=== PATIENT | female | born 1965 | race Caucasian/White ===

== ENCOUNTER 2018-12-26 09:19 | Day surgery (SDC) | payer BC ==
--- OUTSIDE RECORDS SUMMARY | 2018-12-26 09:23 | XMS REPORT | Clinical Summary ---
:1965 Author Organization [facility] Address [address] [place] [address] Care Team Providers Name Role Phone Sharpmiranda Primary Care Provider Allergies Active Allergy Reactions Severity Noted Date Comments Erythromycin Nausea And Vomiting High 10/24/2014 Ynnjkpg-Sdk-Dkv Reductase Other (See Comments) 09/10/2018 Muscular pain Inhibitors Sulfa (Sulfonamide Rash High 10/24/2014 Antibiotics) Oerloounk-Pcxfmxndulw-Anhkgmo 09/10/2018 Medications Medication Sig Dispensed Refills Start End Status Date Date estrogens, 0 Active conjugated,-methyltest 4 osterone (ESTRATEST HS) 0.625-1.25 mg per tablet progesterone 0 Active (PROMETRIUM) 100 MG 4 capsule yqayywny-koqcqxmdm-bew 0 Active rocortisone 4 (CORTISPORIN) 3.5-10,000-10 mg-unit-mg/mL ophthalmic suspension halobetasol 0 Active (ULTRAVATE) 0.05 % 4 cream albuterol (ACCUNEB) Take 1 ampule by 0 Active 1.25 mg/3 mL nebulizer nebulization solution every 6 (six) hours as needed for Wheezing. albuterol HFA Inhale 1 puff by 0 Active (VENTOLIN HFA) 90 mouth via mcg/actuation inhaler inhaler every 6 (six) hours as needed for Wheezing. DYMISTA 137-50 . 0 Active mcg/spray [place] 8 fLUoxetine (PROZAC) 20 . 0 Active MG capsule 8 MICROGESTIN 1.5/30, . 0 Active 21, 1.5-30 mg-mcg Tab 8 triamcinolone . 0 Active (KENALOG) 0.1 % 8 topical cream KOMBIGLYZE XR 5-1,000 . 0 Active mg TM24 8 ondansetron Take 1 tablet (4 20 tablet 0 Discontinued (ZOFRAN-ODT) 4 MG mg total) by 4 018 disintegrating tablet mouth every 4 (four) hours as needed for Nausea. acetaminophen Take by mouth 0 Discontinued (TYLENOL) 500 MG every 6 (six) 018 tablet hours as needed for Pain. methylPREDNISolone Take 4 mg by 0 Discontinued (MEDROL DOSEPACK) 4 mg mouth 2 (two) 018 tablet times daily. follow package directions ciprofloxacin HCl Take 1 tablet 14 tablet 0 (CIPRO) 500 MG tablet (500 mg total) 8 018 by mouth 2 (two) times daily for 7 days. metroNIDAZOLE (FLAGYL) Take 1 tablet 14 tablet 0 500 MG tablet (500 mg total) 8 018 by mouth 2 (two) times daily for 7 days. promethazine Take 1 tablet 30 tablet 0 (PHENERGAN) 25 MG (25 mg total) by 8 018 tablet mouth every 6 (six) hours as needed for Nausea for up to 7 days. traMADol (ULTRAM) 50 Take 1 tablet 15 tablet 0 mg tablet (50 mg total) by 8 018 mouth every 8 (eight) hours as needed for up to 5 days. Max Daily Amount: 150 mg Active Problems Not on file Encounters Date Type Specialty Care Team Description 09/10/2018 Emergency Emergency Medicine Juan Montoya, Abdominal pain, unspecified abdominal location (Primary Dx); Acute diverticulitis; Nausea and vomiting, intractability of vomiting not specified, unspecified vomiting type; Hyperglycemia; Leukocytosis, unspecified type after 12/25/2017 Family History Medical History Relation Name Comments Pneumonia Father COPD Mother Pneumonia Sister Relation Name Status Comments Father Mother Sister Social History Tobacco Use Types Packs/Day Years Used Date Never Smoker Smokeless Tobacco: Never Used Alcohol Use Drinks/Week oz/Week Comments No Sex Assigned at Date Recorded Not on file Job Start Date Occupation Industry Not on file Not on file Not on file Travel History Travel Start Travel End No recent travel history available. Last Filed Vital Signs Vital Sign Reading Time Taken Blood Pressure 118/63 09/10/2018 3:58 AM CDT Pulse 86 09/10/2018 3:58 AM CDT Temperature 36.9 C (98.5 F) 09/10/2018 2:00 AM CDT Respiratory Rate 18 09/10/2018 3:58 AM CDT Oxygen Saturation 99% 09/10/2018 3:58 AM CDT Inhaled Oxygen Concentration - - Weight 108 kg (238 lb) 09/10/2018 12:23 AM CDT Height - - Body Mass Index 44.97 09/10/2018 12:23 AM CDT Plan of Treatment Not on file Procedures Procedure Name Priority Date/Time Associated Comments Diagnosis CT ABDOMEN/PELVIS STAT 09/10/2018 1:42 Results for this WITH IV CONTRAST AM CDT procedure are in the results section. SCREEN, STAT 09/10/2018 12:49 Results for this URINE AM CDT procedure are in the results section. CBC W/PLT COUNT & STAT 09/10/2018 12:48 Results for this AUTO DIFFERENTIAL AM CDT procedure are in the results section. LIPASE STAT 09/10/2018 12:48 Results for this AM CDT procedure are in the results section. HEPATIC FUNCTION STAT 09/10/2018 12:48 Results for this PANEL AM CDT procedure are in the results section. CBC W/PLT COUNT & STAT 09/10/2018 12:48 Results for this AUTO DIFFERENTIAL AM CDT procedure are in the results section. BASIC METABOLIC PANEL STAT 09/10/2018 12:48 Results for this (7) AM CDT procedure are in the results section. URINALYSIS W/ STAT 09/10/2018 12:39 Results for this MICROSCOPIC AM CDT procedure are in the results section. after 12/25/[address] abdomen/pelvis with IV contrast (09/10/2018 1:42 AM CDT) Narrative Performed At FINAL REPORT [facility] CLINICAL HISTORY: Acute abdominal pain. FINDINGS: Multiple axial images of the abdomen and pelvis were performed after the uncomplicated administration of IV contrast. Oral contrast was not given. This exam was performed according to our departmental dose-optimization program, which includes automated exposure control, adjustment of the mA and/or kV according to patient size and/or use of the iterative reconstruction technique. Comparison:None. Lower chest: Clear lungs. No pleural effusion or pneumothorax. Visualized cardiac contours normal. Liver: No significant findings. Gallbladder and biliary tree: No significant findings. Spleen: No significant findings. Adrenal Glands: No significant findings. Kidneys and ureters: No significant findings. Stomach and Duodenum: No significant findings. Pancreas: No significant findings. Bowel: Several left colonic diverticula. Segmental circumferential wall thickening of the proximal sigmoid colon with adjacent inflammatory fat stranding. No evidence of perforation or abscess formation. Appendix:Nonvisualized. No right lower quadrant inflammatory changes. Bladder: No significant findings. Major vascular structures: No significant findings. Reproductive organs: No significant findings. Other: Small, fat filled umbilical hernia. No free intraperitoneal air, fluid or adenopathy Skeleton: No acute bony abnormality. IMPRESSION: Acute, uncomplicated sigmoid diverticulitis. Follow-up colonoscopy is recommended to exclude an underlying colonic lesion when clinically feasible. Signed: Niki Merrill MD Report Verified Date/Time:09/10/2018 01:44:58 Reading Location: [address] Reading Room Procedure Note Interface, External Ris In - 09/10/2018 1:47 AM CDT FINAL REPORT CLINICAL HISTORY: Acute abdominal pain. FINDINGS: Multiple axial images of the abdomen and pelvis were performed after the uncomplicated administration of IV contrast. Oral contrast was not given. This exam was performed according to our departmental dose-optimization program, which includes automated exposure control, adjustment of the mA and/or kV according to patient size and/or use of the iterative reconstruction technique. Comparison:None. Lower chest: Clear lungs. No pleural effusion or pneumothorax. Visualized cardiac contours normal. Liver: No significant findings. Gallbladder and biliary tree: No significant findings. Spleen: No significant findings. Adrenal Glands: No significant findings. Kidneys and ureters: No significant findings. Stomach and Duodenum: No significant findings. Pancreas: No significant findings. Bowel: Several left colonic diverticula. Segmental circumferential wall thickening of the proximal sigmoid colon with adjacent inflammatory fat stranding. No evidence of perforation or abscess formation. Appendix: Nonvisualized. No right lower quadrant inflammatory changes. Bladder: No significant findings. Major vascular structures: No significant findings. Reproductive organs: No significant findings. Other: Small, fat filled umbilical hernia. No free intraperitoneal air, fluid or adenopathy Skeleton: No acute bony abnormality. IMPRESSION: Acute, uncomplicated sigmoid diverticulitis. Follow-up colonoscopy is recommended to exclude an underlying colonic lesion when clinically feasible. Signed: Niki Merrill MD Report Verified Date/Time: 09/10/2018 01:44:58 Reading Location: [address] Reading Room Performing Organization Address City/State/Zipcode Phone Number GE RIS Screen, urine (09/10/2018 12:49 AM CDT) Preg Test, Ur Negative [facility] Specimen Urine - Urine, Clean Catch Performing Organization Address City/[facility] Phone Number [facility] [address] [place] [address] [facility] CBC with platelet count + automated diff (09/10/2018 12:48 AM CDT) WBC 15.3 (H) 4.0 - 10.0 K/L [facility] RBC 4.30 4.00 - 5.00 M/L [facility] Hemoglobin 12.9 12.0 - 15.0 GM/DL [facility] Hematocrit 38.9 36.0 - 45.0 % [facility] MCV 90.5 82.0 - 99.0 fL [facility] MCH 29.9 27.0 - 33.0 pg [facility] MCHC 33.0 32.0 - 36.0 GM/DL [facility] RDW 12.1 10.3 - 14.2 % [facility] Platelets 368 150 - 430 K/CU MM [facility] MPV 7.8 6.5 - 10.5 fL [facility] % Neutros 70 % [facility] % Lymphs 18 % [facility] % Monos 9 % [facility] % Eos 3 % [facility] % Baso 1 % [facility] # Neutros 10.72 (H) 1.80 - 8.00 K/L [facility] # Lymphs 2.71 1.48 - 4.50 K/L [facility] # Monos 1.35 (H) 0.00 - 1.30 K/L [facility] # Eos 0.38 0.00 - 0.50 K/L [facility] # Baso 0.17 0.00 - 0.20 K/L [facility] Specimen Blood - Arm, Right Performing Organization Address City/[facility]/Zipcode Phone Number [facility] [address] [place] [address] [facility] Lipase (09/10/2018 12:48 AM CDT) Lipase 81 40 - 240 U/L [facility] Specimen Blood - Arm, Right Performing Organization Address City/[facility]/Zipcode Phone Number [facility] [address] [place], [place] [phone] [facility], [facility] Hepatic function panel (09/10/2018 12:48 AM CDT) Protein, Total 7.2 6.0 - 8.5 gm/dL [facility] Albumin 3.6 3.5 - 5.0 g/dL [facility] Total Bilirubin 0.3 0.1 - 1.2 mg/dL [facility] Bilirubin, Direct 0.0 0.0 - 0.4 mg/dL [facility] Alkaline Phosphatase 61 30 - 115 U/L [facility] AST 18 5 - 40 U/L [facility] ALT 33 5 - 50 U/L [facility] Specimen Blood - Arm, Right Performing Organization Address City/State/Zipcode Phone Number [place] [address] [place], [place] [phone] [facility] Basic Metabolic Panel (09/10/2018 12:48 AM CDT) Sodium 135 135 - 148 meq/L [facility] Potassium 4.0 3.6 - 5.5 meq/L [facility] Chloride 104 98 - 106 meq/L [facility] CO2 22 (L) 24 - 32 meq/L [facility] BUN 8 (L) 10 - 26 mg/dL [facility] Creatinine 0.75 0.50 - 1.20 mg/dL [facility] Glucose 161 (H) 70 - 110 mg/dL [facility] Calcium 8.7 8.5 - 10.5 mg/dL [facility] EGFR 81Comment: ESTIMATED GFR IS mL/min/1.73 sq m [facility] NOT ACCURATE [facility], CREATININE CLEARANCE IN [facility], PREDICTING GLOMERULAR [facility] FILTRATION RATE. ESTIMATED GFR IS NOT APPLICABLE FOR DIALYSIS PATIENTS. Specimen Blood - Arm, Right Performing Organization Address City/State/Zipcode Phone Number [facility] [address] [place], [place] [phone] [facility] Urinalysis w/Microscopic (09/10/2018 12:39 AM CDT) Color, UA Yellow [facility] Clarity, UA Hazy [facility] Specific [place], UA 1.015 1.001 - 1.035 [facility] pH, UA 7.5 5.0 - 8.0 [facility] Protein, UA Negative Negative [facility] Glucose, UA Negative Negative [facility] Ketones, UA Negative Negative [facility] Bilirubin, UA Negative Negative [facility] Blood, UA Trace (A) Negative [facility] Nitrite, UA Negative Negative [facility] Leukocytes, UA Small (A) Negative [facility] Urobilinogen, UA 1.0 0.2 - 1.0 mg/dL [facility] Bacteria, UA Rare [facility] RBC, UA None Seen /HPF [facility] WBC, UA 5-10 /HPF [facility] SQUAMOUS EPITHELIAL 5-10 /HPF [facility] Specimen Source [facility] Specimen Urine - Urine, Clean Catch Performing Organization Address City/State/Zipcode Phone Number [facility] [address] [place] [address] [facility], [facility] after 12/25/2017 Insurance Payer Benefit Plan / Subscriber ID Type Phone Address Group BLUE CROSS/[employer]UE [employer] OS xxxxxxxxxxxx PPO [phone] [address] [employer]IELD [place] [address]
--- OUTSIDE RECORDS SUMMARY | 2018-12-26 09:23 | XMS REPORT ---
:1965 [facility] Address [address] [place] [address] Care Team Providers Name Role Phone CEDRICK GANT Unavailable Unavailable Problems This patient has no known problems. Allergies, Adverse Reactions, Alerts This patient has no known allergies or adverse reactions. Medications This patient has no known medications. Results Test Description Test Time Test Comments Text Results Atomic Results Result Comments CT, ABDOMEN 2018-09-10 01:44:00 Reason for FINAL REPORT PATIENT ID: exam:->Abdominal painIs [id number] CLINICAL the patient HISTORY: Acute abdominal ?->NoWhat is the pain. FINDINGS: Multiple patient's sedation axial images of the requirement?->No Sedation abdomen and pelvis were performed after the [...] underlying colonic lesion when clinically feasible. Signed: Santino Merrill MDReport Verified Date/Time: 09/10/2018 01:44:58 Reading Location: [address] Reading Room TIC FUNCTION PANEL 2018-09-10 01:30:00 Test Item Value Reference Range Comments TOTAL PROTEIN (BEAKER) (test fhxl=264) 7.2 gm/dL 6.0-8.5 ALBUMIN (BEAKER) (test xujy=9581) 3.6 g/dL 3.5-5.0 BILIRUBIN TOTAL (BEAKER) (test hpea=386) 0.3 mg/dL 0.1-1.2 BILIRUBIN DIRECT (BEAKER) (test oaxc=885) 0.0 mg/dL 0.0-0.4 ALKALINE PHOSPHATASE (BEAKER) (test jqpd=562) 61 U/L 30-115 AST (SGOT) (BEAKER) (test sbda=085) 18 U/L 5-40 ALT (SGPT) (BEAKER) (test lgri=943) 33 U/L 5-50 [id number] 01:19:00 Test Item Value Reference Range Comments LIPASE (BEAKER) (test qvmy=472) 81 U/L 40-240 BASIC METABOLIC [id number] 01:10:00 Test Item Value Reference Range Comments SODIUM (BEAKER) (test 135 meq/L 135-148 qbcw=217) POTASSIUM (BEAKER) (test 4.0 meq/L 3.6-5.5 hrmk=978) CHLORIDE (BEAKER) (test 104 meq/L 98-106 qmzr=673) CO2 (BEAKER) (test 22 meq/L 24-32 untt=742) BLOOD UREA NITROGEN 8 mg/dL 10-26 (BEAKER) (test cvvh=864) CREATININE (BEAKER) (test 0.75 mg/dL 0.50-1.20 zqmz=407) GLUCOSE RANDOM (BEAKER) 161 mg/dL 70-110 (test kwzp=751) CALCIUM (BEAKER) (test 8.7 mg/dL 8.5-10.5 hcpp=170) EGFR (BEAKER) (test 81 mL/min/1.73 sq m ESTIMATED GFR IS NOT elmp=1882) ACCURATE CREATININE CLEARANCE IN PREDICTING GLOMERULAR FILTRATION RATE. ESTIMATED GFR IS NOT APPLICABLE FOR DIALYSIS PATIENTS. CBC W/PLT COUNT & AUTO [id number] 01:06:00 Test Item Value Reference Range Comments WHITE BLOOD CELL COUNT (BEAKER) (test piba=815) 15.3 K/ L 4.0-10.0 RED BLOOD CELL COUNT (BEAKER) (test vhxn=596) 4.30 M/ L 4.00-5.00 HEMOGLOBIN (BEAKER) (test ppbx=857) 12.9 GM/DL 12.0-15.0 HEMATOCRIT (BEAKER) (test yukx=263) 38.9 % 36.0-45.0 MEAN CORPUSCULAR VOLUME (BEAKER) (test jkws=931) 90.5 fL 82.0-99.0 MEAN CORPUSCULAR HEMOGLOBIN (BEAKER) (test 29.9 pg 27.0-33.0 kodu=027) MEAN CORPUSCULAR HEMOGLOBIN CONC (BEAKER) (test 33.0 GM/DL 32.0-36.0 neut=220) RED CELL DISTRIBUTION WIDTH (BEAKER) (test 12.1 % 10.3-14.2 gxyf=978) PLATELET COUNT (BEAKER) (test ddsn=859) 368 K/CU MM 150-430 MEAN PLATELET VOLUME (BEAKER) (test ankb=322) 7.8 fL 6.5-10.5 NEUTROPHILS RELATIVE PERCENT (BEAKER) (test 70 % yoav=543) LYMPHOCYTES RELATIVE PERCENT (BEAKER) (test 18 % pzxx=709) MONOCYTES RELATIVE PERCENT (BEAKER) (test 9 % epuy=778) EOSINOPHILS RELATIVE PERCENT (BEAKER) (test 3 % bzra=086) BASOPHILS RELATIVE PERCENT (BEAKER) (test 1 % zhrq=297) NEUTROPHILS ABSOLUTE COUNT (BEAKER) (test 10.72 K/ L 1.80-8.00 dbgg=271) LYMPHOCYTES ABSOLUTE COUNT (BEAKER) (test 2.71 K/ L 1.48-4.50 hsxr=951) MONOCYTES ABSOLUTE COUNT (BEAKER) (test 1.35 K/ L 0.00-1.30 xqmn=759) EOSINOPHILS ABSOLUTE COUNT (BEAKER) (test 0.38 K/ L 0.00-0.50 ovss=835) BASOPHILS ABSOLUTE COUNT (BEAKER) (test 0.17 K/ L 0.00-0.20 owuw=842) SCREEN, [id number] 01:03:00 Test Item Value Reference Range Comments TEST URINE (BEAKER) (test rfdh=396) Negative URINALYSIS W/ [id number] 01:02:00 Test Item Value Reference Range Comments COLOR (BEAKER) (test xxmc=307) Yellow CLARITY (BEAKER) (test qmfa=858) Hazy SPECIFIC GRAVITY UA (BEAKER) (test fucp=155) 1.015 1.001-1.035 PH UA (BEAKER) (test cbfs=347) 7.5 5.0-8.0 PROTEIN UA (BEAKER) (test lffj=909) Negative Negative GLUCOSE UA (BEAKER) (test cqlj=026) Negative Negative KETONES UA (BEAKER) (test mtru=941) Negative Negative BILIRUBIN UA (BEAKER) (test jezq=686) Negative Negative BLOOD UA (BEAKER) (test btpk=531) Trace Negative NITRITE UA (BEAKER) (test yhnv=723) Negative Negative LEUKOCYTE ESTERASE UA (BEAKER) (test Small Negative nnvl=561) UROBILINOGEN UA (BEAKER) (test gpwx=669) 1.0 mg/dL 0.2-1.0 BACTERIA (BEAKER) (test taob=896) Rare RBC UA-MANUAL (BEAKER) (test paes=3889) None Seen /HPF WBC UA-MANUAL (BEAKER) (test mhgp=0866) 5-10 /HPF SQUAMOUS EPITHELIAL MANUAL (BEAKER) (test 5-10 /HPF vycp=8454) SOURCE(BEAKER) (test jcdq=9436)
[2018-12-26] MEDS ORDERED: MIDAZOLAM HCL 2 MG/2 ML INJ ONE ×2 (10:12→10:47)
[2018-12-26] MEDS ORDERED: LIDOCAINE 1.5% W/EPI AMP 5 ML ONE (10:15)
[2018-12-26] MEDS ORDERED: NA CHLORIDE 0.9% 1,000 ML ONE ×2 (10:15)
[2018-12-26] MEDS ORDERED: LIDOCAINE 1% MPF 5 ML VIAL ONE (10:47)
[2018-12-26] MEDS ORDERED: FENTANYL CITR 100 MCG/2 ML ONE (10:47)
[2018-12-26] MEDS ORDERED: PROPOFOL 200 MG/20 ML VIAL IV ONE (10:47)
[2018-12-26] MEDS ORDERED: ONDANSETRON 4 MG/2 ML VIAL ONE (11:12)
[2018-12-26] MEDS ORDERED: KETOROLAC 30 MG/ML INJ ONE (11:13)
[2018-12-26] MEDS ORDERED: PROMETHAZINE 25 MG TABLET PO PRN (11:14)
[2018-12-26] MEDS ORDERED: IBUPROFEN 200 MG TAB PO PRN (11:14)
[2018-12-26] MEDS ORDERED: HYDROCODONE/APAP 5/325 MG TAB PO PRN (11:14)
--- NOTE | 2018-12-26 11:17 | P.BOP ---
Preoperative diagnosis: PMB Postoperative diagnosis: same and endometrial polypsx2 Primary procedure: Hysteroscopy polypectomy D&C Estimated blood loss: min Specimen: polyps and EMC Findings: one post and one ant wall polyps, tiny; thick endometrium/ some adhesions Anesthesia: MAC Complications: None Transferred to: Recovery Room Condition: Good
[2018-12-26 13:17] VITALS: BP 101/64; TEMP 99.1; O2SAT 96
--- NOTE | 2018-12-26 22:24 | OP ---
Date of Procedure: 12/26/2018 Surgeon: Ann Roland MD Preoperative Diagnosis: Postmenopausal bleeding. Postoperative Diagnoses: Postmenopausal bleeding and endometrial polyps with intrauterine adhesions. Procedures Performed: Hysteroscopy, polypectomy, and D and C. Anesthesia: MAC plus paracervical block with 1.5% lidocaine. Specimens: Endometrial polyps and curettings. Complications: No complications. Drains: No drains. Condition: The patient's condition is stable. Indications: The patient is a 53-year-old with complaints of postmenopausal bleeding. A transvagina l ultrasound was performed. The uterine lining was 6 mm thicker than what it should be for post kasey pause. In the setting of bleeding, the standard of care is to perform endometrial sampling. Discuss ed about this that she would tolerate this better in the hospital as well as cavity visualization was important. So, decided to perform hysteroscopy, D and C. The patient with risk factors for type 1 EAC. She was counseled appropriately and brought to the OR. Description Of Procedure: After MAC was given, she was placed in a dorsal lithotomy position. Pelvi c exam performed. Uterus found to be anteflexed and no adnexal masses were palpable. Speculum was p laced in the vagina to examine. Anterior lip injected with 1.5% lidocaine mixed with 1:200,000 epine phrine, 4 cc was injected here and the remaining 3 cc each on the area for the paracervical block at 4 and 8 o'clock positions of the cervicovaginal junction. Prep x3 with Betadine was done. SlimLine diagnostic hysteroscope using a 30-degree lens and normal s nghia was passed through the cervical canal into the uterine cavity under direct vision. Once enteri ng the uterine cavity, the findings as discussed above. After thorough cavity visualization, the sco pe was removed. The operative sheath was placed. Scissors were placed through this. The posterior polyp was cut as well as the anterior polyp. They were retrieved with Celio forceps, checked with the scope that they were removed completely in fact and they were confirmed. Then the scope was kristyn michelle, endometrial curettings were performed with #2 curette and these were handed out for permanent pa thology. EBL was minimal. She will follow up with me in 1 week. SHANNEN/ANTONI Voice ID: [id number] Report ID: [id number]
== END 2018-12-26 12:01 | disposition home or self-care (01) ==
LOC: OR 09:19
PROVIDERS: ATTEND Obstetrics & Gynecology
PROC: 0UJD8ZZ Inspection of Uterus and Cervix, Via Natural or Artificial Opening Endoscopic (ICD-10-PCS; 2018-12-26)
PROC: 0UDB7ZX Extraction of Endometrium, Via Natural or Artificial Opening, Diagnostic (ICD-10-PCS; principal; 2018-12-26 10:30)
DX: N84.0 Polyp of corpus uteri (principal); N95.0 Postmenopausal bleeding; N95.1 Menopausal and female climacteric states; E11.9 Type 2 diabetes mellitus without complications; E78.5 Hyperlipidemia, unspecified; I10 Essential (primary) hypertension; J45.909 Unspecified asthma, uncomplicated; K21.9 Gastro-esophageal reflux disease without esophagitis; F32.9 Major depressive disorder, single episode, unspecified; Z79.84 Long term (current) use of oral hypoglycemic drugs; Z79.899 Other long term (current) drug therapy; E66.01 Morbid (severe) obesity due to excess calories; Z68.41 Body mass index [BMI] 40.0-44.9, adult
CPT/HCPCS: 82962; 88305; J2001; J2250; J2405; J2704; J3010; J7030